=== PATIENT | female | born 1985 | race Caucasian/White ===

== ENCOUNTER 2017-03-11 14:09 | Outpatient (CLI) | payer SELFPAY ==
[~2017-03-11] VITALS: Ht 157.5 cm; Wt 61.3 kg
[2017-03-11 14:58] LABS: DAU SCREEN DISCLAIMER
== END 2017-03-11 14:41 | disposition home or self-care (01) ==
LOC: LDOP 14:09
PROVIDERS: ATTEND Student in an Organized Health Care Education/Training Program
DX: O46.92 Antepartum hemorrhage, unspecified, second trimester (principal); Z3A.22 22 weeks gestation of pregnancy
CPT/HCPCS: 59025; 80307; 99201; G0463

== ENCOUNTER 2017-06-14 15:01 | Outpatient (CLI) | payer MEDICAID ==
[~2017-06-14] VITALS: Ht 157.5 cm; Wt 73.6 kg
[2017-06-14 15:29] LABS: DAU SCREEN DISCLAIMER
[2017-06-14 15:40] VITALS: BP 100/61
== END 2017-06-14 16:15 | disposition home or self-care (01) ==
LOC: LDOP 15:01
PROVIDERS: ATTEND Obstetrics & Gynecology
DX: O26.893 Other specified pregnancy related conditions, third trimester (principal); R10.9 Unspecified abdominal pain; M79.606 Pain in leg, unspecified; Z3A.37 37 weeks gestation of pregnancy
CPT/HCPCS: 59025; 80307; 81001; 87077; 87086; 87186; 99211; G0463